=== PATIENT | female | born 1985 | race Hispanic/Latino ===

== ENCOUNTER 2019-01-16 02:40 | Inpatient (IN) | payer OTHER ==
[2019-01-16] MEDS ORDERED: Ringers Lactate 1,000 ML IV PRN (06:58)
[2019-01-16] MEDS ORDERED: Ringers Lactate 1,000 ML IV SCH (07:00)
[2019-01-16] MEDS ORDERED: OXYTOCIN/LR 20 UNIT/1,000 ML BAG IV SCH ×2 (07:00→17:00)
[2019-01-16 07:16] LABS: RPR Titer ND
[2019-01-16 07:20] LABS: Absolute Lymphocytes (CBC) 2.1 K/uL (0.7-4.9); Absolute Monocytes 0.7 K/uL (0.1-1.3); Absolute Neutrophil 8.1 K/uL (1.8-8.0); Basophils % 0.3 % (0-1.3); Hematocrit 31.6 % (36.0-45.0); Lymphocytes % 19.3 % (15.3-44.8); MPV 10.5 fL (7.6-11.3); Monocytes % 5.9 % (3.3-12.3); RBC Red Blood Cell Count 3.78 M/uL (3.86-4.86)
[2019-01-16 07:26] LABS: Urine Appearance CLOUDY; Urine Bilirubin NEGATIVE (NEG); Urine Blood NEGATIVE (NEG); Urine Color YELLOW; Urine Glucose NEGATIVE (NEG); Urine Protein NEGATIVE (NEG); Urine Specific Gravity 1.015 (1.005-1.030); Urine Urobilinogen 0.2 mg/dL (0.2-1.0)
[2019-01-16 07:28] LABS: Urine Microscopic Reflex ORDER UMIC
[2019-01-16 07:42] LABS: Urine RBC <5 /HPF (NONE SEEN)
[2019-01-16 07:43] LABS: Urine Bacteria 20-50 /HPF (<20); Urine Culture Reflex Order REFLEXED; Urine Mucus 1+ /HPF (NONE SEEN)
[2019-01-16 07:53] VITALS: BMI 38.5
[2019-01-16] MEDS ORDERED: FENTANYL CITR 100 MCG/2 ML IV ONE (08:44)
[2019-01-16] MEDS ORDERED: BUPIVACAINE 0.25% PF 30 ML VIAL IV ONE (08:45)
[2019-01-16] MEDS ORDERED: FENTANYL/BUPIVACAINE/NS/PF 200 MCG/100 ML BAG EP ONE (08:47)
--- NOTE | 2019-01-16 15:10 | P.PN ---
Date of Service: 01/16/19 Cx unchanged at 3cm, behind pubic bone, fetus shows no signs of progress. CPD extremely likely. Will proceed with primary for FTP
[2019-01-16] MEDS ORDERED: CEFAZOLIN/SWI 2gm 2 GM/20 ML SYR IVP SCH (15:15)
[2019-01-16] MEDS ORDERED: FAMOTIDINE 20 MG/2 ML VIAL IV SCH (15:30)
[2019-01-16] MEDS ORDERED: LIDOCAINE 2% W/EPI 1:200,000 MPF 20 ML VIAL IM ONE (15:37)
[2019-01-16] MEDS ORDERED: OXYTOCIN 10 UNIT/ML ML IV ONE ×2 (15:50)
[2019-01-16] MEDS ORDERED: PROPOFOL 200 MG/20 ML VIAL IV ONE (15:57)
[2019-01-16] MEDS ORDERED: NA CIT/CITRIC AC 30 ML ORAL UDC PO SCH (16:00)
[2019-01-16] MEDS ORDERED: METOCLOPRAMIDE 10 MG/2mL INJ IV SCH (16:00)
[2019-01-16] MEDS ORDERED: MORPHINE SULFATE/PF 1 MG/ML (10 ML AMP) ONE (16:11)
[2019-01-16] MEDS ORDERED: FENTANYL CITR 250 MCG/5 ML ONE (16:16)
[2019-01-16] MEDS ORDERED: MIDAZOLAM HCL 2 MG/2 ML INJ ONE (16:16)
[2019-01-16] MEDS ORDERED: Oxycodone HCl/Acetaminophen 1 TAB TAB PO PRN (16:41)
[2019-01-16] MEDS ORDERED: METHYLERGONOVINE 0.2 MG TAB PO PRN (16:41)
[2019-01-16] MEDS ORDERED: ONDANSETRON 4 MG (ODT) TAB PO PRN (16:41)
[2019-01-16] MEDS ORDERED: METHYLERGONOVINE 0.2MG/ML AMP IM PRN (16:41)
[2019-01-16] MEDS ORDERED: CARBOPROST TROME 250 MCG/ML IM PRN (16:41)
--- NOTE | 2019-01-16 16:44 | P.BOP ---
Preoperative diagnosis: FTP secondary to CPD Postoperative diagnosis: Same, viable female Primary procedure: Estimated blood loss: 800ml Specimen: placenta Anesthesia: IVCS Complications: None Transferred to: Other (274) Condition: Good
[2019-01-16] MEDS ORDERED: Ringers Lactate 1,000 ML IV ONE ×2 (18:04→18:05)
[2019-01-17] MEDS: KETOROLAC 30 MG/ML INJ IV PRN ×2 (02:28→11:00)
[2019-01-17 03:01] LABS: RPR (Rapid Plasma Reagin) NON-REACT (NON-REACT)
[2019-01-17 06:28] LABS: Absolute Lymphocytes (CBC) 1.6 K/uL (0.7-4.9); Absolute Monocytes 0.6 K/uL (0.1-1.3); Absolute Neutrophil 9.9 K/uL (1.8-8.0); Basophils % 1.5 % (0-1.3); Eosinophils % 0.3 % (0-4.4); Hematocrit 28.2 % (36.0-45.0); Lymphocytes % 12.9 % (15.3-44.8); MPV 10.2 fL (7.6-11.3); RBC Red Blood Cell Count 3.35 M/uL (3.86-4.86)
--- NOTE | 2019-01-17 08:03 | P.PN ---
Date of Service: 01/17/19 S-No complaints O-Afeb, vs stable, post op hh only mild decrease noted, bandage dry, abdomen soft A-Satisfactory P-routine care
--- NOTE | 2019-01-17 09:22 | OP ---
Surgeon: Emmett Eubanks MD Anesthesiologist: Dr. Cedrick Dominguez and Dr. Amin. Sponge and needle counts were correct x2. Preoperative Diagnosis: A 39-week . Failure to progress in labor. Procedure: Primary section, delivery of viable female infant. Postoperative Diagnosis: A 39-week . Failure to progress in labor. Cephalopelvic dispropo rtion. Description Of Procedure: After satisfactory level of epidural anesthesia, an IV analgesia was obtai shala. The patient was prepped and draped in usual fashion for abdominal surgery. She had received 2 g of Ancef for antibiotic prophylaxis. A Conde catheter was in place, and she had SCDs in place. A Pfannenstiel skin incision was made and carried down to the fascia. Fascia was incised with a combin ation of sharp and blunt dissection. This was from the underlying rectus muscles. These w ere divided in the midline. Vesicouterine peritoneum incised and a bladder flap was developed. A lo w-transverse incision was made. A 7 pounds 4 ounces female , 9 and 9 was delivered with the aid of short Piper forceps to lift the head from the pelvis. Cord was clamped, cut, and the infa nt was placed in a warmer. Cord blood was obtained. The placenta was manually removed. The uterus was then exteriorized. The uterus was closed in 2 layers utilizing running sutures of 0 Vicryl in no nlocking fashion, second layer used to imbricate the first. A bladder flap was reapproximated with a running suture of 3-0 Vicryl. The uterus was returned to peritoneal cavity, which was cleaned of am niotic fluid, debris, and blood clot. The rectus muscles were approximated in the midline with simpl e sutures of 0 Vicryl. The fascia was closed with running sutures of 1-0 Vicryl from either margin t o the middle. The skin was closed with subcutaneous sutures of 3-0 Vicryl, subdermal suture of 3-0 V icryl, and a running subcuticular suture of 4-0 Monocryl. Estimated total blood loss was 800 cc. patient was taken to the recovery room in satisfactory condition. RUDY/TAMARA Voice ID: [id number] Report ID: [id number]
[2019-01-17] MEDS: IBUPROFEN 400 MG TAB PO PRN (15:20)
[2019-01-17] MEDS: Oxycodone HCl/Acetaminophen 1 TAB TAB PO PRN (20:31)
[2019-01-18] MEDS: Oxycodone HCl/Acetaminophen 1 TAB TAB PO PRN (04:23)
--- NOTE | 2019-01-18 11:58 | DS ---
Final Hospital Discharge Diagnoses: 1.A 39 week , delivered. 2.Failure to progress in labor secondary to cephalopelvic disproportion. 3.Delivery via primary section. 4.Iron deficiency anemia. Complications: None. Procedures: Artificial rupture of membranes, Pitocin induction of labor, placement of epidural misty ter, section. Hospital Course: The patient is a 33-year-old female, admitted at 39+ weeks gestation for elective induction. She failed to progress beyond 3+ cm with vertex remaining above the pelvic brim. She delivered a 7 pounds 4 ounces female infant, 9 and 9 with epidural anesthesia and IV anal gesia. She was dismissed on the second postoperative day, ambulatory on a select diet with routine p ost section activity restrictions, to be seen back in my office in 1 week. She had an admis cony hemoglobin and hematocrit of 10.3 and 31.6, dismissal of 9.4 and 28.2. She had a negative urine culture. She is O-positive blood type and rubella immune. She was dismissed to continue taking her iron and vitamins with prescription for Tylenol No. 3 #15 for pain relief. RUDY/TAMARA Voice ID: [id number] Report ID: [id number]
[2019-01-18 12:53] VITALS: BP 114/78; TEMP 98.1
[2019-01-18] MEDS: IBUPROFEN 400 MG TAB PO PRN (13:00)
[2019-01-21 21:04] LABS: HBsAG Nonreactive (Nonreactive)
== END 2019-01-18 13:25 | disposition home or self-care (01) | DRG 788 ==
LOC: 2ND-WC 06:20
PROVIDERS: ADMIT Specialist; ATTEND Specialist
PROC: 10D00Z1 Extraction of Products of Conception, Low, Open Approach (ICD-10-PCS; principal; 2019-01-17)
PROC: 10D07Z4 Extraction of Products of Conception, Mid Forceps, Via Natural or Artificial Opening (ICD-10-PCS; 2019-01-17)
PROC: 10907ZC Drainage of Amniotic Fluid, Therapeutic from Products of Conception, Via Natural or Artificial Opening (ICD-10-PCS; 2019-01-17)
PROC: 3E033VJ Introduction of Other Hormone into Peripheral Vein, Percutaneous Approach (ICD-10-PCS; 2019-01-17)
DX: O99.02 Anemia complicating childbirth (principal); D50.8 Other iron deficiency anemias; O62.0 Primary inadequate contractions; O33.9 Maternal care for disproportion, unspecified; O66.5 Attempted application of vacuum extractor and forceps; Z3A.39 39 weeks gestation of pregnancy; Z37.0 Single live birth
CPT/HCPCS: 36415; 81003; 81015; 85025; 86592; 86850; 86900; 86901; 87086; 87088; 87340; 88307; J0690; J2250; J2590; J2704; J2765; J3010